=== PATIENT | female | born 1990 | race Caucasian/White ===

== ENCOUNTER 2022-08-31 12:34 | Emergency (ER) | payer MEDICARE, MEDICAID, SELFPAY ==
[2022-08-31] VITALS (21 sets, daily range): BP systolic 110–127; BP diastolic 62–91; PULSE 59–93; RESP 16; O2SAT 98–100; BMI 28.3
--- NOTE | 2022-08-31 15:37 | ED.GENADULT ---
HPI - General Adult General Time Seen by Provider: 15:38 Date Seen: 08/31/22 Chief complaint: Abdominal Pain Stated complaint: stomach pain Time Seen by Provider: 08/31/22 13:48 Source: patient and RN notes reviewed Mode of arrival: ambulatory Limitations: no limitations History of Present Illness HPI narrative: Patient is a 32-year-old female referred from urgent care with 4 day history of nausea vomiting and abdominal pain. She states about 11:00 p.m. Sunday night this started with abdominal pain and nausea vomiting. She has not been able to really eat anything as she has had ongoing abdominal pain and discomfort. She has not vomited in 2 days now. She has had normal bowel movements. No diarrhea. She is not had any fevers. She is not aware of any ill contacts or potentially food she ate. 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 She just can not remember. She was able to eat a small cup of macaroni and cheese yesterday. She has been taking fluids. She is on Depo-Provera and has not missed any doses. There are no urinary symptoms. She has not had any prior abdominal surgeries. No travel. Related Data Home Medications Medication Instructions Recorded Confirmed aripiprazole 5 mg tablet mg 08/31/22 bupropion HCl 150 mg 24 hr tablet, mg PO 08/31/22 extended release clonidine HCl 0.2 mg tablet mg 08/31/22 famotidine 20 mg tablet mg 08/31/22 fluoxetine 40 mg capsule mg 08/31/22 gabapentin 300 mg capsule mg 08/31/22 guanfacine 1 mg tablet,extended mg PO 08/31/22 release 24 hr lamotrigine 100 mg tablet mg 08/31/22 naproxen 500 mg tablet mg PRN 08/31/22 omeprazole 20 mg capsule,delayed mg 08/31/22 release propranolol 20 mg tablet mg 08/31/22 Previous Rx's Medication Instructions Recorded omeprazole 40 mg capsule,delayed 40 mg PO DAILY #14 caps 08/31/22 release ondansetron 4 mg disintegrating 4 mg PO Q6H PRN nausea and 08/31/22 tablet vomiting #20 tabs Allergies Allergy/AdvReac Type Severity Reaction Status Date / Time venom-wasp AdvReac Mild finger Verified 08/31/22 13:22 swelling Review of Systems Status of ROS: Reports: 10 or more systems reviewed and unremarkable except as noted in History and below PFSH PFS Social History Smoking Status: Current every day smoker Do you use any of these nicotine containing products: Vaping Products Second hand tobacco smoke exposure: No How often do you have a drink containing alcohol: 2-4 times a month AUDIT-C Alcohol total score: 2 Non-prescribed substance use: marijuana (any form) Exam Const: Vital Signs, click to edit/add: Vital Signs - 24 hr 08/31/22 13:15 08/31/22 15:23 08/31/22 15:22 Pulse Rate 69 Pulse Rate [Left P ulse Oximeter] 66 69 Respiratory Rate 16 16 Blood Pressure 127/62 Blood Pressure [Ri ght Upper Arm] 110/71 127/62 Pulse Oximetry 100 99 100 Oxygen Delivery Me thod Room Air Room Air 08/31/22 15:23 08/31/22 15:30 08/31/22 15:32 Pulse Rate 68 65 78 Pulse Rate [Left P ulse Oximeter] Respiratory Rate Blood Pressure 115/85 Blood Pressure [Ri ght Upper Arm] Pulse Oximetry 99 100 100 Oxygen Delivery Me thod 08/31/22 15:33 08/31/22 15:45 08/31/22 16:00 Pulse Rate 62 59 L 68 Pulse Rate [Left P ulse Oximeter] Respiratory Rate Blood Pressure Blood Pressure [Ri ght Upper Arm] Pulse Oximetry 100 100 100 Oxygen Delivery Me thod 08/31/22 16:02 08/31/22 16:15 08/31/22 16:30 Pulse Rate 67 67 Pulse Rate [Left P ulse Oximeter] Respiratory Rate Blood Pressure 114/91 H Blood Pressure [Ri ght Upper Arm] Pulse Oximetry 100 100 Oxygen Delivery Me thod Documenting provider has reviewed patient's vital signs: yes Common normals: no apparent distress, average body habitus, oriented x3, no limitations, healthy appearing, alert and well nourished General appearance: cooperative, comfortable, well kempt and well developed HENMT: Common normals: normocephalic, head/scalp atraumatic, hearing grossly normal bilaterally, external ears normal, external nose normal, nasal mucous membranes and turbinates normal, moist oral mucous membranes, oropharynx normal, dentition normal and gingiva normal Head and scalp: normocephalic and atraumatic Nose: external nose normal and nasal mucous membranes and turbinates normal External ear: external ears normal Eye: Common normals: PERRL, EOMs intact bilaterally, conjunctivae normal and no scleral icterus Conjunctiva: conjunctiva(e) normal Pupil: PERRL Neck & C-Spine: Common normals: full ROM, no lymphadenopathy, supple, no meningeal signs, no JVD and thyroid normal Thyroid: thyroid normal Resp: Common normals: normal respiratory effort, no retractions, no use of accessory muscles and clear to auscultation bilaterally Auscultation: clear to auscultation bilaterally Cardio: Common normals: no JVD, regular rate, regular rhythm, S1 normal heart sound, S2 normal heart sound, no gallops and no murmurs Rate: regular rate Rhythm: regular rhythm Heart sounds: S1 normal and S2 normal GI: Common normals: Normal to inspection, nondistended, normoactive bowel sounds present, soft to palpation, non-tender, no hepatosplenomegaly and no masses Palpation: soft and no hepatosplenomegaly Neuro: Common normals: oriented x3 Sensorium/orientation: alert Meningeal signs: no meningeal signs Psych: Appearance: well kempt Course Course Hospital Course: Patient looks clinically quite well. We will place an IV, treated with some IV Protonix, IV Zofran and a L of normal saline. We will get appropriate labs. I will initiate with imaging with a flat and upright. She does not have any abdominal tenderness. She has not vomited in a couple days now but is just having difficulty eating with increased pain. We will ensure that we do not need to do any advanced imaging today. This could be some post gastroenteritis gastritis, ileus. Doubtful that she has a small-bowel obstruction given her clinical exam on her abdomen. Will consider acute intra-abdominal pathology and guide further workup as indicated by a are pending labs and abdominal film. Reevaluation(s) Reevaluation #1: Reviewed patient's labs with her, did review her mildly elevated liver enzymes with ALT greater than AST. She used to drink heavily but has not drank in probably over a year. I do wonder if this is some viral induced bump in her liver enzymes. She is feeling better. IA do need her to follow up and have her liver enzymes rechecked or return if she is worsening in the interim. She does understand. Time: 18:05 Vital Signs Vital signs: Initial Vital Signs Temperature Source Temporal Artery Scan 08/31/22 13:15 Pulse Rate 66 08/31/22 13:15 Pulse Rhythm 08/31/22 13:15 Respiratory Rate 16 08/31/22 13:15 Blood Pressure 110/71 08/31/22 13:15 Blood Pressure Mean 84 08/31/22 13:15 Blood Pressure Position Sitting 08/31/22 13:15 Pulse Oximetry 100 08/31/22 13:15 Oxygen Delivery Method 08/31/22 13:15 Vital Signs Pulse Rate 66 08/31/22 13:15 Respiratory Rate 16 08/31/22 13:15 Blood Pressure 110/71 08/31/22 13:15 Pulse Oximetry 100 08/31/22 13:15 Oxygen Delivery Method 08/31/22 13:15 Pulse Rate 67 08/31/22 16:30 Respiratory Rate 16 08/31/22 15:23 Blood Pressure 114/91 H 08/31/22 16:02 Pulse Oximetry 100 08/31/22 16:30 Oxygen Delivery Method 08/31/22 15:23 Medical Decision Making Lab Data Lab results reviewed: Yes I reviewed the patient's lab results Labs: Lab Results 08/31/22 08/31/22 08/31/22 Range/Units 16:13 16:13 16:13 WBC 6.35 (4.50-11.00) K/uL RBC 4.91 (4.00-5.20) m/uL Hgb 12.3 (12.0-16.0) gm/dL Hct 38.5 (33.0-51.0) % MCV 78 L (80-100) fL MCH 25 L (26-34) pg MCHC 32 (32-36) gm/dL RDW Coeff of Oliverio 14.1 (11.5-15.5) % Plt Count 360 (140-440) K/uL Neut % (Auto) 47.8 (42.0-72.0) % Lymph % (Auto) 38.0 (20-44) % [place] % (Auto) 8.7 (0.0-11.0) % Eos % (Auto) 4.9 (0.0-7.0) % Baso % (Auto) 0.6 (0.0-3.0) % Neut # (Auto) 3.04 (1.7-7.0) K/uL Lymph # (Auto) 2.41 (0.90-2.90) K/uL [place] # (Auto) 0.60 (0.00-0.90) K/UL Eos # (Auto) 0.31 (0.00-0.50) K/uL Baso # (Auto) 0.04 (0.00-0.30) K/uL Abs Immat Gran (auto) 0.00 (0.00-0.30) K/uL Imm/Tot Granulo (auto) 0.0 % Sodium 141 (135-149) mmol/L Potassium 3.8 (3.6-5.1) mmol/L Chloride 105 (96-114) mmol/L Carbon Dioxide 25 (20-32) mmol/L BUN 8 (5-24) mg/dL Creatinine 0.6 (0.5-1.5) mg/dL Estimated Creat Clear 117.31 Estimated GFR 123 ml/min Glucose 87 (60-115) mg/dL Lactate 0.8 (0.5-1.9) mmol/L Calcium 9.6 (8.4-10.6) mg/dL Total Bilirubin 0.6 (0.1-1.5) mg/dL AST 51 H (12-35) U/L ALT 182 H (4-35) U/L Alkaline Phosphatase 116 (40-150) U/L C-Reactive Protein < 0.5 L (0.5-1.0) mg/dL Total Protein 8.0 (6.0-8.3) g/dL Albumin 4.8 (3.3-5.0) g/dL Lipase 39 (23-300) U/L SARS-CoV-2 (PCR) (Negative) Influenza Type A (PCR) (Negative) Influenza Type B (PCR) (Negative) 08/31/22 Range/Units 16:23 WBC (4.50-11.00) K/uL RBC (4.00-5.20) m/uL Hgb (12.0-16.0) gm/dL Hct (33.0-51.0) % MCV (80-100) fL MCH (26-34) pg MCHC (32-36) gm/dL RDW Coeff of Oliverio (11.5-15.5) % Plt Count (140-440) K/uL Neut % (Auto) (42.0-72.0) % Lymph % (Auto) (20-44) % [place] % (Auto) (0.0-11.0) % Eos % (Auto) (0.0-7.0) % Baso % (Auto) (0.0-3.0) % Neut # (Auto) (1.7-7.0) K/uL Lymph # (Auto) (0.90-2.90) K/uL [place] # (Auto) (0.00-0.90) K/UL Eos # (Auto) (0.00-0.50) K/uL Baso # (Auto) (0.00-0.30) K/uL Abs Immat Gran (auto) (0.00-0.30) K/uL Imm/Tot Granulo (auto) % Sodium (135-149) mmol/L Potassium (3.6-5.1) mmol/L Chloride (96-114) mmol/L Carbon Dioxide (20-32) mmol/L BUN (5-24) mg/dL Creatinine (0.5-1.5) mg/dL Estimated Creat Clear Estimated GFR ml/min Glucose (60-115) mg/dL Lactate (0.5-1.9) mmol/L Calcium (8.4-10.6) mg/dL Total Bilirubin (0.1-1.5) mg/dL AST (12-35) U/L ALT (4-35) U/L Alkaline Phosphatase (40-150) U/L C-Reactive Protein (0.5-1.0) mg/dL Total Protein (6.0-8.3) g/dL Albumin (3.3-5.0) g/dL Lipase (23-300) U/L SARS-CoV-2 (PCR) Negative SARS-CoV-2 (Negative) Influenza Type A (PCR) Negative PCR FLU A (Negative) Influenza Type B (PCR) Negative PCR FLU B (Negative) Imaging Data Abdominal x-ray: Attestation: I have reviewed the pertinent imaging results. My impression: No obstructive bowel pattern on my preliminary read. Radiologist's impression: Patient: GONZALO SHRESTHA Facility:[facility] Patient ID:?[id number] Site Patient ID:?[id number]. Site :?[id number] Study:?XRay Abdomen 2 VIEW-08/31/2022 4:12:48 PM Ordering Physician:Sreedhar Flaherty Final Report: Cap indication: n/v, pain Technique: Abdomen 3 view. Comparison: None. Findings: Bowel: Bowel pattern is normal. The amount of colonic stool is within normal limits. Other: No sign of free air. No suspicious calcifications. Osseous structures are unremarkable for age. Impression: Nonobstructed bowel-gas pattern. Unremarkable exam. Dictated by Alec Nielsen MD @ 08/31/2022 4:49:53 PM (Electronic Signature) Critical Care Time Critical Care Time Critical Care Time: No Discharge Plan Discharge Clinical Impression: Gastroenteritis, Elevated liver enzymes, Abdominal pain Condition: Stable Instructions: Gastroenteritis (ED), Abdominal Pain (ED) Additional Instructions: Can use Zofran as needed to help control nausea so that you can take in liquids. Would try to be on a clear liquid diet for the next 24 hours, if feeling okay then can try to advance diet as tolerated. Take daily omeprazole for the next 1-2 weeks until you are feeling better. Need to schedule a follow-up with your primary care provider in clinic and have your liver enzymes rechecked. Your AST and ALT, 2 liver enzymes, were very mildly elevated. It is possible that a viral cause of gastroenteritis could do this. It still is important to have these rechecked. If they remain elevated, would recommend further workup including potentially a liver ultrasound next. If you find over the weekend that you are having increasing abdominal pain, worsening nausea or vomiting, develops fever, have further concerns, return to the ER for further evaluation. Will place you on a proton pump inhibitor, omeprazole, to help heal up any potential gastritis of the stomach that may have occurred from a viral gastroenteritis. Activity Level: Activity as Tolerated Prescriptions: New omeprazole 40 mg capsule,delayed release(DR/EC) 40 mg PO DAILY Qty: 14 0RF ondansetron 4 mg tablet,disintegrating 4 mg PO Q6H PRN (Reason: nausea and vomiting) Qty: 20 0RF No Action fluoxetine 40 mg capsule clonidine HCl 0.2 mg tablet famotidine 20 mg tablet gabapentin 300 mg capsule lamotrigine 100 mg tablet naproxen 500 mg tablet PRN aripiprazole 5 mg tablet bupropion HCl 150 mg tablet extended release 24 hr PO guanfacine 1 mg tablet extended release 24 hr PO omeprazole 20 mg capsule,delayed release(DR/EC) propranolol 20 mg tablet Follow Up/Referrals: Provider,Not a Local [Primary Care Provider] - Stand Alone Forms: [facility] Info Instructions
--- NOTE | 2022-08-31 15:46 | CRLHL7_ITS ---
For Patients: As a result of the Century Cures Act, medical imaging exams and procedure reports are released immediately into your electronic medical record. You may view this report before your referring provider. If you have questions, please contact your health care provider. Cap indication: n/v, pain Technique: Abdomen 3 view. Comparison: None. Findings: Bowel: Bowel pattern is normal. The amount of colonic stool is within normal limits. Other: No sign of free air. No suspicious calcifications. Osseous structures are unremarkable for age. Impression: Nonobstructed bowel-gas pattern. Unremarkable exam. Dictated by Alec Nielsen MD @ 08/31/2022 4:49:53 PM (Electronically Signed)
[2022-08-31] MEDS: PANTOPRAZOLE SODIUM 40 MG INJ IVP (16:18)
[2022-08-31] MEDS: ONDANSETRON 2 MG/ML inj 4 MG IVP (16:18)
[2022-08-31] MEDS: 0.9 % SODIUM CHLORIDE 1000 ml 1,000 ML 500 ML IV (16:19)
[2022-08-31 16:28] LABS: Basophils Absolute Auto 0.04 K/uL (0.00-0.30); Basophils Percent Auto 0.6 % (0.0-3.0); Eosinophils Absolute Auto 0.31 K/uL (0.00-0.50); Eosinophils Percent Auto 4.9 % (0.0-7.0); Hematocrit 38.5 % (33.0-51.0); Hemoglobin* 12.3 gm/dL (12.0-16.0); Lymphocytes Absolute Auto 2.41 K/uL (0.90-2.90); Mean Corpuscular HGB Conc 32 gm/dL (32-36); Mean Corpuscular Hemoglobin 25 pg (26-34); Mean Corpuscular Volume 78 fL (80-100); Monocytes Percent Auto 8.7 % (0.0-11.0); Neutrophils Absolute Auto 3.04 K/uL (1.7-7.0); Neutrophils Percent Auto 47.8 % (42.0-72.0); Platelet Count* 360 K/uL (140-440); RDW Coefficient of Variation % 14.1 % (11.5-15.5); Red Blood Count 4.91 m/uL (4.00-5.20); White Blood Count* 6.35 K/uL (4.50-11.00)
[2022-08-31 16:29] LABS: Lactate* 0.8 mmol/L (0.5-1.9)
[2022-08-31 16:35] LABS: Slide Review Reflex No
[2022-08-31 16:48] LABS: Albumin* 4.8 g/dL (3.3-5.0); Chloride* 105 mmol/L (96-114)
[2022-08-31 16:49] LABS: Potassium* 3.8 mmol/L (3.6-5.1); Sodium* 141 mmol/L (135-149)
[2022-08-31 16:51] LABS: Creatinine* 0.6 mg/dL (0.5-1.5); Est. Creatinine Clearance* 117.31; Estimated Glomerular Filt Rate 123 ml/min
[2022-08-31 16:52] LABS: Alanine Aminotransferase* 182 U/L (4-35); Alkaline Phosphatase* 116 U/L (40-150); Aspartate Amino Transferase* 51 U/L (12-35); Bilirubin Total* 0.6 mg/dL (0.1-1.5); Blood Urea Nitrogen* 8 mg/dL (5-24); Calcium* 9.6 mg/dL (8.4-10.6); Carbon Dioxide* 25 mmol/L (20-32); Glucose* 87 mg/dL (60-115); Lipase* 39 U/L (23-300)
[2022-08-31 16:58] LABS: C Reactive Protein* < 0.5 mg/dL (0.5-1.0)
[2022-08-31 17:05] LABS: PCR FLU A Negative PCR FLU A (Negative); PCR FLU B Negative PCR FLU B (Negative); SARS PCR* Negative SARS-CoV-2 (Negative)
== END 2022-08-31 18:20 | disposition home or self-care (01) ==
PROVIDERS: Emergency Provider Family Medicine
DX: K52.9 Noninfective gastroenteritis and colitis, unspecified (principal); R94.5 Abnormal results of liver function studies
CPT/HCPCS: 36415; 74019; 80053; 83605; 83690; 85025; 86140; 87631; 96374; 96375; 99284; C9113; J2405; J7030

== ENCOUNTER 2022-10-03 22:06 | Emergency (ER) | payer MEDICARE, MEDICAID, SELFPAY | END 2022-10-03 23:46 | disposition left against medical advice (07) | LOC: ED 23:45 | DX: Z53.21 Procedure and treatment not carried out due to patient leaving prior to being seen by health care provider (principal) ==

== ENCOUNTER 2022-10-05 16:16 | Emergency (ER) | payer MEDICARE, MEDICAID, SELFPAY ==
[2022-10-05 16:39] VITALS: BP 111/80; PULSE 96; RESP 16; TEMP 36.4; O2SAT 98; BMI 25.6
--- NOTE | 2022-10-05 18:17 | ED.NAVMDI ---
HPI - Nausea/Vomiting/Diarrhea General Time Seen by Provider: 18:17 Date Seen: 10/05/22 Chief complaint: Nausea/Vomiting Stated complaint: Suspected elevated liver enzymes, nausea Time Seen by Provider: 10/05/22 18:17 Source: patient, RN notes reviewed and old records reviewed Mode of arrival: ambulatory Limitations: no limitations History of Present Illness HPI Narrative: Brooke is a very pleasant 32-year-old female with history of vomiting with elevated liver enzymes who comes to the emergency room with vomiting. She has her significant other note the inability to keep down food or even fluids including water for 3 days. She has continued to urinate. She has not had a sore throat or runny nose or a cough. She has not had a fever or any diarrhea with this. She was supposed to follow up for recheck of her liver enzymes after having similar symptoms in August. She was unable to do this she as she could not afford the gas money. She denies possibility of as she is currently on Depo. Associated nausea: Yes Related Data Home Medications Medication Instructions Recorded Confirmed aripiprazole 5 mg tablet 5 mg PO DAILY 08/31/22 10/05/22 bupropion HCl 150 mg 24 hr tablet, 150 mg PO DAILY 08/31/22 10/05/22 extended release clonidine HCl 0.2 mg tablet 0.2 mg PO PRN 08/31/22 famotidine 20 mg tablet 20 mg PO DAILY 08/31/22 10/05/22 fluoxetine 40 mg capsule 40 mg PO DAILY 08/31/22 10/05/22 gabapentin 300 mg capsule 300 mg PO Q12H 08/31/22 10/05/22 guanfacine 1 mg tablet,extended 1 mg PO PRN 08/31/22 release 24 hr lamotrigine 100 mg tablet 100 mg PO DAILY 08/31/22 10/05/22 naproxen 500 mg tablet mg PRN 08/31/22 omeprazole 20 mg capsule,delayed 20 mg PO DAILY 08/31/22 10/05/22 release propranolol 20 mg tablet mg 08/31/22 Previous Rx's Medication Instructions Recorded omeprazole 40 mg capsule,delayed 40 mg PO DAILY #14 caps 08/31/22 release ondansetron 4 mg disintegrating 4 mg PO Q6H PRN nausea and 08/31/22 tablet vomiting #20 tabs folic acid 400 mcg tablet 400 mcg PO DAILY #30 tabs 10/05/22 Allergies Allergy/AdvReac Type Severity Reaction Status Date / Time venom-wasp AdvReac Mild finger Verified 10/05/22 16:44 swelling Review of Systems Status of ROS: Reports: 10 or more systems reviewed and unremarkable except as noted in History and below Const: Denies: fever or chills Eyes: Denies: change in vision ENMT: Denies: throat pain, neck pain or difficulty swallowing Cardio: Denies: chest pain, swelling of feet/ankles, lightheadedness or shortness of breath with exertion Resp: Denies: shortness of breath, cough or wheezing GI: Reports: abdominal pain (There is an area on her lower abdomen that is tender only with coughing.), nausea and vomiting; Denies: diarrhea or difficulty swallowing : Denies: painful urination or urinary frequency Musculo: Denies: neck pain Neuro: Denies: headache, numbness in extremities or weakness in extremities Allergy/Immuno: Denies: wheezing PFSH PFSH Social History Smoking Status: Current every day smoker Do you use any of these nicotine containing products: Vaping Products Second hand tobacco smoke exposure: No How often do you have a drink containing alcohol: monthly or less How many standard drinks containing alcohol do you have on a typical day: 1 or 2 How often do you have six or more drinks on one occasion: Never AUDIT-C Alcohol total score: 1 Non-prescribed substance use: marijuana (any form) service: No Exam Narrative: Exam Narrative: Brooke is alert and oriented. She is nontoxic in appearance. She is in exam for in her significant other present very loving and supportive. Her eyes are clear and oral cavity does have moist mucous membranes. No erythema exudate in the posterior oropharynx. Neck is supple. Heart with regular rate and rhythm and lungs are clear. Abdomen is soft nontender. Patient does have an area near her belt buckle of that shows excoriated skin without evidence of infection this area is about the size of a elongated golf ball. No underlying tenderness. Moving all extremities. Const: Vital Signs, click to edit/add: Vital Signs - 24 hr 10/05/22 16:39 10/05/22 19:30 Temperature 97.6 F Pulse Rate [Right Pulse Oximeter] 96 92 Respiratory Rate 16 20 Blood Pressure [Ri ght Upper Arm] 111/80 116/74 Pulse Oximetry 98 100 Oxygen Delivery Me thod Room Air Room Air Documenting provider has reviewed patient's vital signs: yes Course Course Hospital Course: At this time patient has a history of elevated liver enzymes of unknown etiology. She uses a marijuana gummy occasionally but this is not on a daily basis and I do not think that this is cyclic vomiting syndrome. Her abdominal exam is very benign at this time. Would place an IV, repeat labs to include CBC, comprehensive panel, CRP and urinalysis. Zofran 4 mg IV and 1 L of normal saline will also be given. Reevaluation(s) Reevaluation #1: Patient is much improved after normal saline. Her labs are reassuring at this time and there is no evidence of elevated liver function test. I did add a urine hCG test and it was positive to the big surprise of Brooke in her partner. Vital Signs Vital signs: Initial Vital Signs Temperature 97.6 F 10/05/22 16:39 Temperature Source Temporal Artery Scan 10/05/22 16:39 Pulse Rate 96 10/05/22 16:39 Respiratory Rate 16 10/05/22 16:39 Blood Pressure 111/80 10/05/22 16:39 Blood Pressure Mean 90 10/05/22 16:39 Blood Pressure Position Sitting 10/05/22 16:39 Pulse Oximetry 98 10/05/22 16:39 Oxygen Delivery Method 10/05/22 16:39 Vital Signs Temperature 97.6 F 10/05/22 16:39 Pulse Rate 96 10/05/22 16:39 Respiratory Rate 16 10/05/22 16:39 Blood Pressure 111/80 10/05/22 16:39 Pulse Oximetry 98 10/05/22 16:39 Oxygen Delivery Method 10/05/22 16:39 Temperature 97.6 F 10/05/22 16:39 Pulse Rate 92 10/05/22 19:30 Respiratory Rate 20 10/05/22 19:30 Blood Pressure 116/74 10/05/22 19:30 Pulse Oximetry 100 10/05/22 19:30 Oxygen Delivery Method 10/05/22 19:30 MDM - Nausea/Vomiting/Diarrhea MDM Narrative Medical decision making narrative: 1. Vomiting-patient has had resolution of symptoms and is able to keep fluids down at this time. Normal saline 1 L and Zofran 4 mg IV given. Will give Brooke Zofran ODT through our [employer] meds machine to be used at home as needed. Push fluids as much as possible. 2. -I think that the vomiting most likely stems from her . There is no evidence of an hCG done in August. Brooke had told me that it is not possible she is because she was on Depo shots. However upon further discussion she notes that she is supposed to do it every 3 months and she is likely overdue. She cannot tell me when she last had her shot or when she had her last period. She does not have sore breasts at this time. She initially states ?my parents are going to kill me?. She states she is not sure if she is happy or unhappy. 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 Will also start her on high-dose folic acid as she is on lamotrigine. 400 mcg daily prescription sent to [facility]'s pharmacy. I was able to speak to RICHA Starr as patient is on multiple psychiatric medications. We were able to tell her that she may continue fluoxetine, omeprazole, Robitussin, Abilify, Belsomra, lamotrigine, clonidine. Patient was instructed to discontinue topiramate and sumatriptan although she states she has not taken that in quite some time. She should also abstain from naproxen and ibuprofen and may use Tylenol only for discomfort. She will need to follow up with her psychiatrist with the information that she is so that they may weigh in on her continuing medications. OBGYN did not feel that we should suddenly discontinue these medications after weighing risks and benefits. Patient is instructed to follow-up at our clinic to establish with OBYARELYN and obtain ultrasound for dates. 3. Disposition-patient is discharged home. Return as needed for worsening symptoms. Push fluids. Medical Records Attestation: I reviewed the patient's medical records. Lab Data Attestation: I reviewed the patient's lab results. Labs: Lab Results 10/05/22 10/05/22 10/05/22 Range/Units 18:26 18:42 18:42 WBC 8.27 (4.50-11.00) K/uL RBC 4.85 (4.00-5.20) m/uL Hgb 12.0 (12.0-16.0) gm/dL Hct 36.5 (33.0-51.0) % MCV 75 L (80-100) fL MCH 25 L (26-34) pg MCHC 33 (32-36) gm/dL RDW Coeff of Oliverio 15.3 (11.5-15.5) % Plt Count 387 (140-440) K/uL Neut % (Auto) 62.8 (42.0-72.0) % Lymph % (Auto) 26.2 (20-44) % [place] % (Auto) 9.1 (0.0-11.0) % Eos % (Auto) 1.5 (0.0-7.0) % Baso % (Auto) 0.4 (0.0-3.0) % Neut # (Auto) 5.20 (1.7-7.0) K/uL Lymph # (Auto) 2.17 (0.90-2.90) K/uL [place] # (Auto) 0.80 (0.00-0.90) K/UL Eos # (Auto) 0.12 (0.00-0.50) K/uL Baso # (Auto) 0.03 (0.00-0.30) K/uL Sodium 137 (135-149) mmol/L Potassium 3.6 (3.6-5.1) mmol/L Chloride 105 (96-114) mmol/L Carbon Dioxide 20 (20-32) mmol/L BUN 7 (5-24) mg/dL Creatinine 0.6 (0.5-1.5) mg/dL Estimated Creat Clear 117.31 Estimated GFR 123 ml/min Glucose 87 (60-115) mg/dL Calcium 9.5 (8.4-10.6) mg/dL Total Bilirubin 0.6 (0.1-1.5) mg/dL AST 21 (12-35) U/L ALT 20 (4-35) U/L Alkaline Phosphatase 97 (40-150) U/L C-Reactive Protein < 0.5 L (0.5-1.0) mg/dL Total Protein 8.2 (6.0-8.3) g/dL Albumin 4.8 (3.3-5.0) g/dL Urine Color Yellow (Yellow) Urine Appearance Clear (Clear) Urine pH 5.5 (5.0-8.5) Ur Specific [place] >= 1.030 (1.000-1.030) Urine Protein Trace A (Negative) Urine Glucose (UA) Negative (Negative) Urine Ketones 4+ A (Negative) Urine Blood Negative (Negative) Urine Nitrite Negative (Negative) Urine Bilirubin 1+ A (Negative) Urine Urobilinogen 0.2 (0.2-1.0) Ur Leukocyte Esterase Negative (Negative) Urine RBC 0-2 (0-2) Urine WBC 0-2 (0-5) Ur Squamous Epith Cells Moderate A (None-Few) Urine Bacteria Few A (None) Urine HCG, Qual POSITIVE H (Negative) Discharge Plan Discharge Clinical Impression: , Vomiting Patient Disposition: Home, Self-Care Condition: Improved Additional Instructions: Push fluids. Start vitamins. Zofran may be used sparingly as needed for nausea. Follow-up with our OBGYN clinic. Appointment can be made at [phone]. Of your medication from your physician, you would need to stop Topiramate also known as Topamax although you stated that you had not been taking that., sumatriptan although you stated that you are not taking this either. You would also need to not take naproxen headache medication known as Excedrin and ibuprofen. You may use Tylenol for pain. supplier quality engineering manager any vitamin at the store that you would like to start taking. If this makes you nauseated you may use Flintstones with iron. In addition we will start you on I high dose folate or folic acid supplement that I have sent to the pharmacy at [facility]. Return as needed. Prescriptions: New folic acid 400 mcg tablet 400 mcg PO DAILY Qty: 30 2RF No Action fluoxetine 40 mg capsule 40 mg PO DAILY clonidine HCl 0.2 mg tablet 0.2 mg PO PRN famotidine 20 mg tablet 20 mg PO DAILY gabapentin 300 mg capsule 300 mg PO Q12H lamotrigine 100 mg tablet 100 mg PO DAILY naproxen 500 mg tablet PRN aripiprazole 5 mg tablet 5 mg PO DAILY bupropion HCl 150 mg tablet extended release 24 hr 150 mg PO DAILY guanfacine 1 mg tablet extended release 24 hr 1 mg PO PRN omeprazole 20 mg capsule,delayed release(DR/EC) 20 mg PO DAILY propranolol 20 mg tablet omeprazole 40 mg capsule,delayed release(DR/EC) 40 mg PO DAILY Qty: 14 0RF ondansetron 4 mg tablet,disintegrating 4 mg PO Q6H PRN (Reason: nausea and vomiting) Qty: 20 0RF Follow Up/Referrals: Provider,Not a Local [Primary Care Provider] - Stand Alone Forms: [employer] Info Instructions
[2022-10-05] MEDS: 0.9 % SODIUM CHLORIDE 1000 ml 1,000 ML IV ×2 (18:44→19:40)
[2022-10-05] MEDS: ONDANSETRON 2 MG/ML inj 4 MG IVP (18:52)
[2022-10-05] MEDS: PANTOPRAZOLE SODIUM 40 MG INJ IVP (18:53)
[2022-10-05 18:58] LABS: Basophils Absolute Auto 0.03 K/uL (0.00-0.30); Basophils Percent Auto 0.4 % (0.0-3.0); Eosinophils Absolute Auto 0.12 K/uL (0.00-0.50); Eosinophils Percent Auto 1.5 % (0.0-7.0); Hematocrit 36.5 % (33.0-51.0); Lymphocytes Absolute Auto 2.17 K/uL (0.90-2.90); Lymphocytes Percent Auto 26.2 % (20-44); Mean Corpuscular HGB Conc 33 gm/dL (32-36); Mean Corpuscular Hemoglobin 25 pg (26-34); Mean Corpuscular Volume 75 fL (80-100); Monocytes Percent Auto 9.1 % (0.0-11.0); Neutrophils Percent Auto 62.8 % (42.0-72.0); Platelet Count* 387 K/uL (140-440); RDW Coefficient of Variation % 15.3 % (11.5-15.5); Red Blood Count 4.85 m/uL (4.00-5.20); White Blood Count* 8.27 K/uL (4.50-11.00)
[2022-10-05 19:02] LABS: Slide Review Reflex No
[2022-10-05 19:13] LABS: Albumin* 4.8 g/dL (3.3-5.0); Chloride* 105 mmol/L (96-114); Sodium* 137 mmol/L (135-149)
[2022-10-05 19:14] LABS: Potassium* 3.6 mmol/L (3.6-5.1)
[2022-10-05 19:16] LABS: Carbon Dioxide* 20 mmol/L (20-32); Creatinine* 0.6 mg/dL (0.5-1.5); Est. Creatinine Clearance* 117.31; Estimated Glomerular Filt Rate 123 ml/min
[2022-10-05 19:16] LABS: Appearance Urine Clear (Clear); Bilirubin Urine 1+ (Negative); Blood Urine Negative (Negative); Color Urine Yellow (Yellow); Glucose Urine Negative (Negative); Ketones Urine 4+ (Negative); Leukocyte Esterase Urine Negative (Negative); Nitrite Urine Negative (Negative); Protein Urine Trace (Negative); Specific Gravity Urine >= 1.030 (1.000-1.030); Urobilinogen Urine 0.2 (0.2-1.0); pH Urine 5.5 (5.0-8.5)
[2022-10-05 19:17] LABS: Alanine Aminotransferase* 20 U/L (4-35); Alkaline Phosphatase* 97 U/L (40-150); Aspartate Amino Transferase* 21 U/L (12-35); Bilirubin Total* 0.6 mg/dL (0.1-1.5); Blood Urea Nitrogen* 7 mg/dL (5-24); Calcium* 9.5 mg/dL (8.4-10.6); Glucose* 87 mg/dL (60-115); Total Protein* 8.2 g/dL (6.0-8.3)
[2022-10-05 19:22] LABS: C Reactive Protein* < 0.5 mg/dL (0.5-1.0)
[2022-10-05 19:26] LABS: Bacteria Urine Few; RBC Urine 0-2 (0-2); Squamous Epithelial Cell Urine Moderate (None-Few); WBC Urine 0-2 (0-5)
[2022-10-05 19:30] VITALS: BP 116/74; PULSE 92; RESP 20; O2SAT 100
[2022-10-05 20:20] LABS: Ur HCG Qualitative* POSITIVE (Negative)
== END 2022-10-05 21:33 | disposition home or self-care (01) ==
PROVIDERS: Emergency Provider Family Medicine
DX: R11.10 Vomiting, unspecified (principal); Z32.01 Encounter for pregnancy test, result positive
CPT/HCPCS: 36415; 80053; 81001; 81025; 85025; 86140; 87086; 96374; 96375; 99283; 99284; C9113; J2405; J7030

== ENCOUNTER 2022-10-13 08:40 | Outpatient (CLI) | payer MEDICARE, MEDICAID, SELFPAY | END 2022-10-13 08:41 | disposition home or self-care (01) | PROVIDERS: Visit Provider Advanced Practice Midwife | DX: Z34.90 Encounter for supervision of normal pregnancy, unspecified, unspecified trimester (principal) | CPT/HCPCS: 84702; 86900; 86901 ==

== ENCOUNTER 2022-10-26 10:56 | Outpatient (CLI) | payer MEDICARE, MEDICAID, SELFPAY ==
[2022-10-26 13:05] LABS: Amphetamine Screen Urine Negative (Negative); Barbiturate Screen Urine Negative (Negative); Benzodiazepines Screen Urine Negative (Negative); Cocaine Screen Urine Negative (Negative); Methadone Screen Urine Negative (Negative); Methamphetamines Screen Urine Negative (Negative); Opiate Screen Urine Negative (Negative); Oxycodone Screen Urine Negative (Negative); Phencyclidine Screen Urine Negative (Negative)
[2022-10-26 13:08] LABS: Cannabinoid Screen Urine POSITIVE (Negative); Tricyclic Antidepressant Urine POSITIVE (Negative)
[2022-10-26 13:42] LABS: HIV 1/2/P24 Combo Screen* Negative (Negative)
[2022-10-26 15:48] LABS: Iron* 35 ug/dL (37-170)
[2022-10-26 15:58] LABS: Percent Iron Saturation 9 % (20-50); Total Iron Binding Capacity 392 ug/dL (265-497)
[2022-10-26 16:22] LABS: Hepatitis B Surface Antigen* Negative (Negative)
[2022-10-26 16:26] LABS: Ferritin* 5.4 ng/mL (6.24-137.0)
[2022-10-26 16:39] LABS: Hepatitis C Virus Antibody* Negative (Negative)
[2022-10-26 20:56] LABS: Chlamydia DNA Amplified* NOT DETECTED (No Detected); GC DNA Amplified* NOT DETECTED (No Detected)
[2022-10-28 02:52] LABS: Rapid Plasma Reagin (RPR) Non Reactive (Non Reactive)
[2022-10-28 06:01] LABS: Varicella-Zoster Virus Ab, IgG 143.3 IV
[2022-10-28 06:02] LABS: Rubella Antibody IgG 21.5 IU/mL
== END 2022-10-26 10:57 | disposition home or self-care (01) ==
PROVIDERS: Visit Provider Physician Assistant
DX: Z34.91 Encounter for supervision of normal pregnancy, unspecified, first trimester; D64.9 Anemia, unspecified; F19.11 Other psychoactive substance abuse, in remission
CPT/HCPCS: 76801; 80306; 82728; 83540; 83550; 86592; 86703; 86762; 86787; 86803; 86850; 86900; 86901; 87086; 87340; 87491; 87591

== ENCOUNTER 2023-03-06 13:05 | Outpatient (CLI) | payer MEDICARE, MEDICAID, SELFPAY ==
--- NOTE | 2023-03-06 13:00 | CRLHL7_ITS ---
For Patients: As a result of the Century Cures Act, medical imaging exams and procedure reports are released immediately into your electronic medical record. You may view this report before your referring provider. If you have questions, please contact your health care provider. INDICATION: MEDICATION USE IN COMPARISON: 10/26/2022 TECHNIQUE: Real time santos scale imaging of the fetus was performed. FINDINGS: Sonographic imaging demonstrates a single living intrauterine gestation. Fetus demonstrates a regular cardiac rate of 150 beats per minute. Fetus has a vertex position. The placenta lies posteriorly. Amniotic fluid volume appears normal and there is a single deepest vertical pocket: 4.4 cm. The estimated weight is 1198gm which lies at the 53rd %. BPD 93rd percentile. HC 78th percentile. AC 57th percentile. FL 23rd percentile. The HC/AC ratio measures 1.13 range (0.99-1.21). IMPRESSION: Sonographic gestational age 28 weeks 6 days and sonographic due date 05/23/2023. Sonographic age is 1 week ahead of the clinical age. Estimated weight 53rd percentile. Abdominal circumference 57th percentile. Dictated by Sebastian Villeda MD @ 03/06/2023 2:41:21 PM (Electronically Signed)
== END 2023-03-06 13:06 | disposition home or self-care (01) ==
PROVIDERS: Visit Provider Physician Assistant
DX: Z34.93 Encounter for supervision of normal pregnancy, unspecified, third trimester (principal); Z3A.28 28 weeks gestation of pregnancy
CPT/HCPCS: 76816; 86592

== ENCOUNTER 2023-04-03 14:18 | Outpatient (CLI) | payer MEDICARE, MEDICAID, SELFPAY ==
[2023-04-03 18:36] LABS: Chlamydia DNA Amplified* NOT DETECTED (No Detected); GC DNA Amplified* NOT DETECTED (No Detected)
== END 2023-04-03 14:19 | disposition home or self-care (01) ==
LOC: NFLDREF 14:19
PROVIDERS: Visit Provider Registered Nurse
DX: N89.8 Other specified noninflammatory disorders of vagina (principal)
CPT/HCPCS: 76816; 87491; 87591

== ENCOUNTER 2023-04-19 09:22 | Outpatient (CLI) | payer MEDICARE, MEDICAID, SELFPAY | END 2023-04-19 09:23 | disposition home or self-care (01) | LOC: NFLDREF 04-20 19:14 | PROVIDERS: Visit Provider Obstetrics & Gynecology | DX: O99.019 Anemia complicating pregnancy, unspecified trimester (principal) | CPT/HCPCS: 82728 ==

== ENCOUNTER 2023-05-01 09:07 | Outpatient (CLI) | payer MEDICARE, MEDICAID, SELFPAY | END 2023-05-01 09:08 | disposition home or self-care (01) | PROVIDERS: Visit Provider Obstetrics & Gynecology | DX: Z34.93 Encounter for supervision of normal pregnancy, unspecified, third trimester (principal); Z3A.35 35 weeks gestation of pregnancy | CPT/HCPCS: 87081; 87653 ==

== ENCOUNTER 2023-05-08 13:00 | Outpatient (RCR) | payer MEDICARE, MEDICAID, SELFPAY ==
--- NOTE | 2023-04-20 12:13 | URNOTE ---
Per [facility] Prior auth List, Prior authorization is not required for Kailash ([id number])
[2023-04-24] MEDS: IRON SUCROSE COMPLEX 200 MG in 0.9 % SODIUM CHLORIDE 100 ml 440 MG IVPB (14:38)
[2023-04-24 15:02] VITALS: BP 96/59; PULSE 91; RESP 16; TEMP 36.7; O2SAT 98
[2023-04-24 15:30] VITALS: BP 97/60; PULSE 93; RESP 16; TEMP 36.5; O2SAT 97
[2023-04-24 16:15] VITALS: BP 94/62; PULSE 82; RESP 18; TEMP 36.1; O2SAT 97
[2023-04-26 13:09] VITALS: BP 133/66; PULSE 61; RESP 16; TEMP 36.2; O2SAT 99
[2023-04-26] MEDS: IRON SUCROSE COMPLEX 200 MG in 0.9 % SODIUM CHLORIDE 100 ml 460 MG IVPB (13:21)
[2023-04-26 14:31] VITALS: BP 134/62; PULSE 53; RESP 16; TEMP 36.6; O2SAT 100
[2023-05-01 11:23] VITALS: BP 109/74; PULSE 70; RESP 16; TEMP 36.3; O2SAT 100
[2023-05-01] MEDS: IRON SUCROSE COMPLEX 200 MG in 0.9 % SODIUM CHLORIDE 100 ml 440 MG IVPB (12:06)
[2023-05-01 12:57] VITALS: BP 113/75; PULSE 84; RESP 14; TEMP 36.9; O2SAT 98
[2023-05-03 12:54] VITALS: BP 104/74; PULSE 111; RESP 16; TEMP 36.2; O2SAT 100
[2023-05-03] MEDS: IRON SUCROSE COMPLEX 200 MG in 0.9 % SODIUM CHLORIDE 100 ml 440 MG IVPB (13:11)
[2023-05-03 13:31] VITALS: BP 99/63; PULSE 93; RESP 16; TEMP 36.2; O2SAT 98
[2023-05-03 14:01] VITALS: BP 99/63; PULSE 102; RESP 16; TEMP 36.4; O2SAT 99
[2023-05-08 13:02] VITALS: BP 110/74; PULSE 126; RESP 16; TEMP 36.1; O2SAT 97
[2023-05-08] MEDS: IRON SUCROSE COMPLEX 200 MG in 0.9 % SODIUM CHLORIDE 100 ml 440 MG IVPB (13:27)
== END 2023-10-21 23:59 | disposition home or self-care (01) ==
LOC: CCIC 13:00
PROVIDERS: Visit Provider Clinical Nurse Specialist
DX: D64.9 Anemia, unspecified (principal)
CPT/HCPCS: 76816; 96374; J1756

== ENCOUNTER 2023-05-12 12:00 | Inpatient (IN) | payer MEDICARE, MEDICAID, SELFPAY ==
[2023-05-12] VITALS (21 sets, daily range): BP systolic 111–159; BP diastolic 62–90; PULSE 50–95; RESP 16; TEMP 36.4–36.7; O2SAT 96–100; BMI 25.2
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
[2023-05-12 13:31] LABS: Basophils Absolute Auto 0.02 K/uL (0.00-0.30); Basophils Percent Auto 0.3 % (0.0-3.0); Eosinophils Absolute Auto 0.09 K/uL (0.00-0.50); Eosinophils Percent Auto 1.3 % (0.0-7.0); Hematocrit 32.2 % (33.0-51.0); Immature Granulocytes Abs Auto 0.02 K/uL (0.00-0.30); Immature Granulocytes Pct Auto 0.3 %; Lymphocytes Absolute Auto 1.37 K/uL (0.90-2.90); Mean Corpuscular HGB Conc 31 gm/dL (32-36); Mean Corpuscular Hemoglobin 24 pg (26-34); Mean Corpuscular Volume 78 fL (80-100); Monocytes Percent Auto 8.5 % (0.0-11.0); Neutrophils Absolute Auto 4.76 K/uL (1.7-7.0); Neutrophils Percent Auto 69.6 % (42.0-72.0); Platelet Count* 222 K/uL (140-440); RDW Coefficient of Variation % 25.2 % (11.5-15.5); Red Blood Count 4.14 m/uL (4.00-5.20); White Blood Count* 6.84 K/uL (4.50-11.00)
[2023-05-12 13:39] LABS: Amphetamine Screen Urine POSITIVE (Negative); Cannabinoid Screen Urine POSITIVE (Negative); Cocaine Screen Urine Negative (Negative); Methamphetamines Screen Urine POSITIVE (Negative); Opiate Screen Urine Negative (Negative); Phencyclidine Screen Urine Negative (Negative)
[2023-05-12 13:40] LABS: Barbiturate Screen Urine Negative (Negative); Benzodiazepines Screen Urine Negative (Negative); Methadone Screen Urine Negative (Negative); Oxycodone Screen Urine Negative (Negative)
[2023-05-12] MEDS: LACTATED RINGERS 1000 ML 1,000 ML 500 ML IV (13:50)
[2023-05-12 13:52] LABS: Albumin* 3.6 g/dL (3.3-5.0); Chloride* 106 mmol/L (96-114); Potassium* 3.4 mmol/L (3.6-5.1); Sodium* 135 mmol/L (135-149)
[2023-05-12 13:54] LABS: Creatinine* 0.6 mg/dL (0.5-1.5); Est. Creatinine Clearance* 116.24; Estimated Glomerular Filt Rate 122 ml/min
[2023-05-12 13:55] LABS: Alanine Aminotransferase* 16 U/L (4-35); Alkaline Phosphatase* 187 U/L (40-150); Aspartate Amino Transferase* 18 U/L (12-35); Bilirubin Total* 0.5 mg/dL (0.1-1.5); Blood Urea Nitrogen* 10 mg/dL (5-24); Calcium* 9.5 mg/dL (8.4-10.6); Carbon Dioxide* 23 mmol/L (20-32); Glucose* 89 mg/dL (60-115); Total Protein* 6.6 g/dL (6.0-8.3)
[2023-05-12 13:57] LABS: Slide Review Reflex Yes
[2023-05-12 13:58] LABS: Slide Review Acceptable Review (Acceptable)
--- NOTE | 2023-05-12 15:04 | P.OBPN_ITS ---
Subjective Time Seen by Provider: 02:30 Date Seen: 05/12/23 Narrative: Okay Objective Vital Signs: Last Vital Signs Pulse 70 05/12/23 12:38 Resp 16 05/12/23 08:24 BP 113/73 05/12/23 12:38 Pulse Ox 100 05/12/23 14:46 Pelvic Exam Dilation (cm): 5-6 Effacement (%): 80 Station: -1 Contractions Monitor mode: External Contraction pattern: Irregular Contraction intensity: Moderate Assessment Assessment: active labor and early labor Station: -1 Amniotic Membrane Status: AROM (Small amount of clear fluid) Status: Category ll Heart Rate Baseline: 130 Solvent Plant Treater Variability: Moderate (6-25) Monitor Accelerations: Present Monitor Decelerations: Variable Tracing Comments: One episode of a prolonged deceleration, down to 80s audible intermittently, position was changed, IVFs increased and internal heart rate monitor placed, baby recovered and is now to a normal baseline with moderate variability and accelerations. Labor Progress: Normal Plan Plan: In labor, patient was re checked as usual and cervix was found 5-6 cm, offered AROM and patient verbally agreed (she has needed AROM with her 2 previous pregnancies-as per patient). Continue current management. Patient would like to try a natural delivery w/o epidural at this time.
[2023-05-12] MEDS: LACTATED RINGERS 1000 ML 1,000 ML 125 ML IV (15:26)
[2023-05-12] MEDS: OMEPRAZOLE 20 MG CAPSULE DR PO (17:40)
[2023-05-12] MEDS: OXYTOCIN 30 unit/500 ML in NS 30 UNIT/500 ML BAG IVPB (18:00)
[2023-05-12] MEDS: ONDANSETRON 2 MG/ML inj 4 MG IV (18:04)
--- NOTE | 2023-05-12 19:46 | W.PM.OBVAGDE ---
OB Procedure Vag Delivery Mother Details Mother Details: The patient is a 33 year-old, 3, Para 3, admitted on 05/12/23 at 37 3/7 weeks gestation in labor for delivery. Patient admitted after cervical change and painful uterine contractions, difficult social situation and history of precipitous deliveries. Labor was augmented with AROM and IV Oxytocin was started after she was 8cm for more than 3 hours, although it was utilized for a very short amount of time, since patient started to experience very painful contractions and eventually requested ITN/epidural. Decision was made to discontinue oxytocin to help improve comfort until anesthesia arrived and patient sat down but started to feel extreme urge to push and was found complete and +2. : 3 Para: 3 Weeks Gestation: 37.3 Admission Date: 05/12/23 Additional Details Amniotic Membrane Status: AROM Amniotic Membrane Rupture Date: 05/12/23 Amniotic Membrane Rupture Time: 14:34 Amniotic Membrane Fluid Description: Clear Analgesia/Anesthesia Type: Nitrous Oxide Waterbirth: No Pitcoin: Yes Intrapartal Events: Labor Augmentation Delivery augmentation: rupture of membranes and pitocin Labor Onset: 14:30 Complete: 19:00 Pushin:00 Heart: heart tones during second stage were category 2. Delivery Details Delivery Date: 05/12/23 Delivery Time: 19:29 Route of delivery: Gender: Male Infant Viability: Alive; Heart Rate Present Position at Delivery: OA Delivery Details: Delivered over intact perineum via spontaneous vaginal delivery. was placed on maternal abdomen.? Cord was clamped and cut after a 30-60 second delay. Nose and mouth were bulb suctioned.? weight pending. 1 Minute Interval Total Score: 7 5 Minute Interval Total Score: 8 Additional Details Shoulder Dystocia: No Placenta Delivery Time: 19:38 Placental Delivery Description: Spontaneous Procedure Done: Global Blood Loss: 100 Laceration: Periurethral - 1st Degree (Not bleeding, not repaired) Blood Loss Measurement Type: QBL Bakri Used: No Sponge/Need Count Correct: Yes Cord Vessel Description: 3 Vessels, Nuchal Cord and Delivered through Event Summary Status: Mother and were stable after delivery. Disposition: floor
[2023-05-12] MEDS: LACTATED RINGERS 1000 ML 1,000 ML 123 ML IV (19:54)
[2023-05-12] MEDS: ACETAMINOPHEN 500 MG TABLET 1000 MG PO (20:42)
[2023-05-12] MEDS: QUETIAPINE 100 MG TABLET PO (21:46)
[2023-05-12] MEDS: ARIPiprazole 10 MG TABLET 5 MG PO (21:46)
[2023-05-12] MEDS: cloNIDine HCL 0.1 MG TABLET 0.2 MG PO (21:47)
[2023-05-13] VITALS (17 sets, daily range): BP systolic 97–147; BP diastolic 58–86; PULSE 50–82; RESP 12–16; TEMP 36.1–36.8; O2SAT 96–100
[2023-05-13] MEDS: 5 % DEXTROSE/0.45% SOD CHLOR 1,000 ML 125 ML IV (00:21)
[2023-05-13 05:49] LABS: Hematocrit 28.5 % (33.0-51.0); Mean Corpuscular HGB Conc 32 gm/dL (32-36); Mean Corpuscular Hemoglobin 25 pg (26-34); Mean Corpuscular Volume 78 fL (80-100); Platelet Count* 218 K/uL (140-440); Red Blood Count 3.65 m/uL (4.00-5.20); White Blood Count* 10.24 K/uL (4.50-11.00)
[2023-05-13 06:01] LABS: Slide Review Reflex No
[2023-05-13 06:04] LABS: Alanine Aminotransferase* 12 U/L (4-35); Aspartate Amino Transferase* 17 U/L (12-35); Blood Urea Nitrogen* 7 mg/dL (5-24); Creatinine* 0.5 mg/dL (0.5-1.5); Est. Creatinine Clearance* 139.49; Estimated Glomerular Filt Rate 128 ml/min
--- NOTE | 2023-05-13 06:42 | PC.CPCO ---
Verbal and written report made to [facility] online. Per Elizabeth Tenorio with [facility], verbal report no longer needed as online written report is all that is required. Rico Currie RNC.
[2023-05-13] MEDS: LACTATED RINGERS 1000 ML 1,000 ML 100 ML IV (08:50)
[2023-05-13] MEDS: BUPIVACAINE 0.5 % 10 ML VIAL INJECTION (09:33)
--- NOTE | 2023-05-13 09:56 | P.GYNPRC_ITS ---
Procedure Note Time Seen by Provider: 08:45 Date of procedure: 05/13/23 Pre-op diagnosis: Family planning Post-op diagnosis: same Procedure: bilateral salpingectomy Anesthesia: GETA Complications: None Surgeon: Hortencia Toro MD Estimated blood loss (mL): 5 Pathology: specimen obtained, sent to pathology Condition: stable Disposition: floor Findings: uterus at the level of the umbilicus, well contracted, grossly normal bilateral fallopian tubes and ovaries. Procedure Description: Informed consent obtained prior to surgery and discussed with patient the difference between partial vs complete salpingectomy. Patient had decided for bilateral salpingectomies and this was corroborated. Patient was taken to OR and GETA obtained without difficulties. Patient was placed in the supine position, cleansed and draped in the usual sterile manner. A time out protocol confirmed name of patient and procedure to be performed. The infraumbilical skin was grasped with two Allis clamps and a segment of about 3-4 cm was incised with blade, this was carried down sharply until the underlying fascia, this was identified and entered with Metzenbaum scissors and intraperitoneal entrance confirmed. Omentum identified to be intact. Small Xavi retractor was placed in the incision. This allowed excellent visualization. Trendelenburg position and a right airplane tilt obtained and the left fallopian tube was identified up to fimbria utilizing Sixto. The LigaSure device was utilized to clamp, coagulate and cut the mesosalpinx from the fimbrial end to cornual end. Hemostasis was secured. Afterwards a left airplane tilt was utilized to identify the right fallopian tube, this was easily identified up to fimbria utilizing Sixto. The LigaSure device was utilized to clamp, coagulate and cut the mesosalpinx from the fimbrial end to cornual end. Hemostasis was secured. Patient was flattened, fascia identified with Allis clamp and this was closed in a continuous fashion utilizing Vicryl 0. The subcutaneous tissue was also approximated with Vicryl 3- 0. The skin was approximated with Monocryl 4-0. Patient tolerated procedure well. She will return to her post room stable to continue cares.
--- NOTE | 2023-05-13 10:15 | W.ANESCHARGE ---
Anesthesia Charges Start Date/Time Anesthesia Start Date: 05/13/23 Anesthesia Start Time: 09:12 Stop Date/Time Anesthesia Stop Date: 05/13/23 Anesthesia Stop Time: 10:12
[2023-05-13] MEDS: KETOROLAC 30 MG/ML inj IVP (14:07)
[2023-05-13] MEDS: ACETAMINOPHEN 500 MG TABLET 1000 MG PO (18:48)
[2023-05-13] MEDS: DOCUSATE SODIUM 100 MG CAPSULE PO (18:49)
[2023-05-13] MEDS: ARIPiprazole 10 MG TABLET 5 MG PO (21:05)
[2023-05-13] MEDS: QUETIAPINE 100 MG TABLET PO (21:05)
[2023-05-13] MEDS: cloNIDine HCL 0.1 MG TABLET 0.2 MG PO (21:05)
[2023-05-13] MEDS: FAMOTIDINE 20 MG TABLET PO (21:05)
[2023-05-13] MEDS: SIMETHICONE 80 MG TAB.CHEW PO (22:33)
[2023-05-14] MEDS: FERROUS SULFATE 325 MG TABLET PO (07:43)
[2023-05-14] MEDS: IBUPROFEN 600 MG TABLET PO (07:43)
[2023-05-14 07:53] VITALS: BP 110/72; PULSE 70; RESP 16; TEMP 36.7; O2SAT 98
--- NOTE | 2023-05-14 07:55 | P.DS_ITS ---
DS: Providers Provider Time Seen by Provider: 07:56 Date Seen: 05/14/23 Date of admission: 05/12/23 12:00 Primary care physician: Not a Local Provider Admitting Clinician: Hortencia Toro MD Consults: 05/12/23 12:50 Consult to [employer] [CONS] Routine Comment: Reason for Consult:: Social Service Consult Attending Physician on discharge: Hortencia Toro MD Date of Discharge: 05/14/23 DS: Diagnosis Discharge Diagnosis (1) NVD (normal vaginal delivery): Status: Acute (2) First degree perineal laceration: Status: Acute (3) with adoption planned: Status: Acute Exam Narrative: Exam Narrative: VSS, afebrile GENERAL APPEARANCE: ?normal affect, alert, no distress MOOD: ?appropriate HEENT: normocephalic, neck supple, full ROM CHEST: ?Symmetrical chest wall movement. ?Normal respiratory effort. ?Clear to auscultation HEART: ?regular rate and rhythm ABDOMEN: ?soft, non-tender. Uterine fundus is firm, 2 below Umbilicus, Midline and is appropriate for the stage of recovery. ?Bowel sounds present. Small incision at umbilicus from tubal ligation. Well approximated, no signs of i nfection PERINEUM: ?mild edema of the perineum, there is a 1st degree laceration that is healing well. EXTREMITIES: ?normal and no edema Const: Vital Signs, click to edit/add: Vital Signs - 24 hr 05/13/23 08:30 05/13/23 10:10 05/13/23 10:15 Temperature 98.2 F 97 F L Pulse Rate 82 60 Pulse Rate [Pulse Oximeter] 65 Respiratory Rate 16 14 14 Blood Pressure 108/72 102/63 Blood Pressure [Le ft Arm] 130/86 Pulse Oximetry 99 100 100 Oxygen Delivery Me thod Room Air Room Air Room Air 05/13/23 10:20 05/13/23 10:25 05/13/23 10:30 Temperature Pulse Rate 62 60 53 L Pulse Rate [Pulse Oximeter] Respiratory Rate 14 14 14 Blood Pressure 110/67 107/67 108/71 Blood Pressure [Le ft Arm] Pulse Oximetry 100 100 100 Oxygen Delivery Me thod Room Air Room Air Room Air 05/13/23 10:35 05/13/23 10:40 05/13/23 10:55 Temperature 97 F L 97.5 F L Pulse Rate 53 L 55 L 50 L Pulse Rate [Pulse Oximeter] Respiratory Rate 14 14 14 Blood Pressure 112/72 124/82 116/75 Blood Pressure [Le ft Arm] Pulse Oximetry 100 100 96 Oxygen Delivery Me thod Room Air Room Air Room Air 05/13/23 11:10 05/13/23 11:25 05/13/23 11:40 Temperature Pulse Rate 56 L 53 L 52 L Pulse Rate [Pulse Oximeter] Respiratory Rate 14 14 14 Blood Pressure 130/71 147/86 H 132/82 Blood Pressure [Le ft Arm] Pulse Oximetry 96 96 96 Oxygen Delivery Me thod Room Air Room Air Room Air 05/13/23 12:48 05/13/23 17:00 05/13/23 23:55 Temperature 97.7 F 98.0 F 97.9 F Pulse Rate Pulse Rate [Pulse Oximeter] 65 54 L 53 L Respiratory Rate 14 14 14 Blood Pressure Blood Pressure [Le ft Arm] 132/71 105/80 111/73 Pulse Oximetry 96 98 98 Oxygen Delivery Me thod Room Air Documenting provider has reviewed patient's vital signs: yes OB - DS: Summary Hospital Course Hospital Course: Brooke is a 33 y.o. G 3 P 3 who was admitted to [facility] for labor. ?She had an uncomplicated NVD The patient feels well. ?The pain is somewhat controlled with current medications. ?She has no new complaints. The baby is currently with the adoptive parents.? the patient has done well.? Vitals have been s table.? She has remained afebrile.? Has a good appetite, is tolerating a general diet. ?She is voiding without difficulty.? She is passing gas and has not had a bowel movement.? She is ambulating and denies any dizziness.? Has Small amount of rubra lochia. She had a tubal ligation for prevention. Problems: Anemia plan: Discharge home today Follow up in 2 weeks and 6 weeks. Acute anemia, continue iron supplementation for 6 weeks Peripartum Data Infant delivery method: Vaginal Laceration description: Perineal - 1st Degree Procedures: Procedures Operation Date: 05/13/23 09:00 Actual Procedure Side Surgeon p Post Tubal Ligation Hortencia Toro MD Procedures: tubal ligation/salpingectomy complications: none Gender: Male Infant Discharge Plan: Adoption: With Contact Status at Discharge Functional status at discharge: independent ambulation Overall status at discharge: patient is progressing back to baseline Time Spent with Patient Time attestation: Total time spent providing and/or coordinating discharge services: Time spent: Less than 30 minutes Discharge Plan Discharge Disposition: Home, Self-Care Date of Admission: 05/12/23 12:00 Attending Provider on Discharge: Cynthia Childers Primary Care Provider: Provider,Not a Local Condition: Stable Anticipated Discharge Date/Time: 05/14/23 10:00 Discharge Medications: New docusate sodium 100 mg Capsule 100 mg PO BID PRNQty: 100 0RF Rx Instructions: Take 1 cap 1-2 times a day as needed for constipation ibuprofen 600 mg Tablet 600 mg PO Q6H PRNQty: 60 0RF oxycodone 5 mg tablet 5 mg PO Q4H PRN (Reason: pain) Qty: 7 0RF Continued quetiapine 100 mg tablet 100 mg PO QDAY polysaccharide iron complex [iFerex 150] 150 mg iron capsule 150 mg PO .COMPLEX Qty: 90 1RF Rx Instructions: 150 mg orally; Take 1 cap every other day. ferrous sulfate 325 mg (65 mg iron) tablet,delayed release (DR/EC) 325 mg PO QDAY Qty: 90 3RF clonidine HCl 0.2 mg tablet 0.2 mg PO DAILY PRN famotidine 20 mg tablet 20 mg PO DAILY aripiprazole 5 mg tablet 5 mg PO DAILY guanfacine 1 mg tablet extended release 24 hr 1 mg PO PRN omeprazole 20 mg capsule,delayed release(DR/EC) 20 mg PO DAILY Discharge Orders: Discharge Order (Routine); Ordered 05/14/23 Ordered By: Cynthia Childers Patient Education: OB Over the Counter Medication Information, OB Vaginal/Bottle Feeding Additional Instructions: Continue to take an iron supplement every other day for 6 weeks. May use tucks and dermaplast (non antiseptic) externally for pain/irritation from laceration. Activity Level: Activity as Tolerated Discharge Diet: Regular Follow Up Appointments: Provider,Not a Local [Primary Care Provider] - Forms: [facility] Info Instructions
[2023-05-14 08:38] VITALS: BP 110/72; PULSE 70; RESP 16; TEMP 36.7; O2SAT 99
--- NOTE | 2023-05-14 11:06 | PC.SOCIAL ---
Social work: Met with pt in room with present. Pt requested be present for social workers visit and was aware of what would be discussed. Pt and baby had positive urine tox screen results for Amphetamines, Meth and THC. Pt was already aware of these results. Informed pt of mandatory CPS report being made to the county. Pt explained that the positive tox screen was due to her using gummies to help with sleep and a few Adderall that were not prescribed being taken toward the end fo the . PT denied any other substance use. Verbal report made to Abdulkaidr at [facility] [phone] at 10:30am on 05/14/23. Written report secure emailed to [facility] [place].
== END 2023-05-14 12:00 | disposition home or self-care (01) | DRG 797 ==
LOC: OB OUT 12:20 → OB 12:20
PROVIDERS: Admitting Provider Obstetrics & Gynecology; Visit Provider Obstetrics & Gynecology
PROC: 0UT70ZZ Resection of Bilateral Fallopian Tubes, Open Approach (ICD-10-PCS; CPT 58605; principal; 2023-05-13 08:45)
DX: O99.344 Other mental disorders complicating childbirth (principal); O99.324 Drug use complicating childbirth; Z37.0 Single live birth; F15.90 Other stimulant use, unspecified, uncomplicated; F12.90 Cannabis use, unspecified, uncomplicated; F32.A Depression, unspecified; F41.9 Anxiety disorder, unspecified; F41.0 Panic disorder [episodic paroxysmal anxiety]; F90.9 Attention-deficit hyperactivity disorder, unspecified type; F43.10 Post-traumatic stress disorder, unspecified; F63.81 Intermittent explosive disorder; Z91.51 Personal history of suicidal behavior; Z91.52 Personal history of nonsuicidal self-harm; O70.0 First degree perineal laceration during delivery; O99.334 Smoking (tobacco) complicating childbirth; F17.211 Nicotine dependence, cigarettes, in remission; O99.02 Anemia complicating childbirth; D64.9 Anemia, unspecified; Z59.02 Unsheltered homelessness; Z30.2 Encounter for sterilization; Z3A.37 37 weeks gestation of pregnancy
CPT/HCPCS: 00851; 36415; 80053; 80306; 82565; 84450; 84460; 84520; 85025; 85027; 86850; 86900; 86901; 88302; 88304; 88307; A9270; J0330; J1100; J1885; J2250; J2371; J2405; J2704; J2710; J3010; J7120; S0020; S5010

== ENCOUNTER 2023-10-09 04:00 | Outpatient (CLI) | payer MEDICARE, MEDICAID, SELFPAY | END 2023-10-09 04:01 | disposition home or self-care (01) | LOC: AMB 10-10 10:42 | PROVIDERS: Visit Provider Family Medicine | DX: R45.851 Suicidal ideations (principal) | CPT/HCPCS: A0425; A0429 ==

== ENCOUNTER 2023-10-09 05:38 | Emergency (ER) | payer MEDICARE, MEDICAID, SELFPAY ==
[2023-10-09 05:51] VITALS: BP 139/103; PULSE 104; RESP 18; TEMP 36.8; O2SAT 97
[2023-10-09 06:22] LABS: Ur HCG Qualitative* Negative (Negative)
[2023-10-09 06:29] LABS: Cannabinoid Screen Urine POSITIVE (Negative)
[2023-10-09 06:30] LABS: Amphetamine Screen Urine POSITIVE (Negative); Barbiturate Screen Urine Negative (Negative); Benzodiazepines Screen Urine Negative (Negative); Cocaine Screen Urine Negative (Negative); Methadone Screen Urine Negative (Negative); Methamphetamines Screen Urine POSITIVE (Negative); Opiate Screen Urine POSITIVE (Negative); Oxycodone Screen Urine Negative (Negative); Phencyclidine Screen Urine Negative (Negative); Tricyclic Antidepressant Urine Negative (Negative)
--- NOTE | 2023-10-09 06:47 | ED_ITS ---
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 at this time. The patient does have a 72 hour hold that is signed but not dated. <Lester Couch MD - Last Filed: 10/09/23 16:05> Patient signed to the start of shift. She was medicated to help her sleep . She had no requests throughout my shift. Josue Duffy ([facility] accepted) [phone]. Transport arranged for 0700 tomorrow (10/10) due to weather and availability. <Capo Reyes DO - Last Filed: 10/10/23 02:03> Lab Data Labs: Lab Results 10/09/23 10/09/23 10/09/23 Range/Units 05:45 06:47 12:33 WBC 9.89 (4.50-11.00) K/uL RBC 4.03 (4.00-5.20) m/uL Hgb 11.6 L (12.0-16.0) gm/dL Hct 34.1 (33.0-51.0) % MCV 85 (80-100) fL MCH 29 (26-34) pg MCHC 34 (32-36) gm/dL RDW Coeff of Oliverio 13.8 (11.5-15.5) % Plt Count 275 (140-440) K/uL Neut % (Auto) 79.4 H (42.0-72.0) % Lymph % (Auto) 11.8 L (20-44) % [place]kins % (Auto) 7.6 (0.0-11.0) % Eos % (Auto) 1.0 (0.0-7.0) % Baso % (Auto) 0.1 (0.0-3.0) % Neut # (Auto) 7.90 H (1.7-7.0) K/uL Lymph # (Auto) 1.20 (0.90-2.90) K/uL Tompkins # (Auto) 0.80 (0.00-0.90) K/UL Eos # (Auto) 0.10 (0.00-0.50) K/uL Baso # (Auto) 0.01 (0.00-0.30) K/uL Abs Immat Gran (auto) 0.01 (0.00-0.30) K/uL Imm/Tot Granulo (auto) 0.1 % Sodium 138 (135-149) mmol/L Potassium 2.7 L* 3.2 L (3.6-5.1) mmol/L Chloride 105 (96-114) mmol/L Carbon Dioxide 23 (20-32) mmol/L Anion Gap 10 (7-15) mEq/L BUN 10 (5-24) mg/dL Creatinine 0.6 (0.5-1.5) mg/dL Estimated GFR 122 ml/min Glucose 99 (60-115) mg/dL Calcium 8.6 (8.4-10.6) mg/dL Total Bilirubin 0.2 (0.1-1.5) mg/dL Direct Bilirubin 0.0 (0.0-0.5) mg/dL AST 30 (12-35) U/L ALT 36 H (4-35) U/L Alkaline Phosphatase 82 (40-150) U/L Total Protein 6.6 (6.0-8.3) g/dL Albumin 3.6 (3.3-5.0) g/dL Urine HCG, Qual Negative (Negative) Salicylates < 1.0 L (1.0-10) mg/dL Urine Opiates Screen POSITIVE A (Negative) Ur Oxycodone Screen Negative (Negative) Urine Methadone Screen Negative (Negative) Ur Propoxyphene Screen Negative (Negative) Acetaminophen < 10.0 L (10.0-30.0) ug/mL Ur Barbiturates Screen Negative (Negative) U Tricyclic Antidepress Negative (Negative) Ur Phencyclidine Scrn Negative (Negative) Ur Amphetamines Screen POSITIVE A (Negative) U Methamphetamines Scrn POSITIVE A (Negative) U Benzodiazepines Scrn Negative (Negative) Urine Cocaine Screen Negative (Negative) U Marijuana (THC) Screen POSITIVE A (Negative) Ur Drug Screen Comment See Note Ethyl Alcohol < 0.01 L (0.01-0.03) % SARS-CoV-2 (PCR) (Negative) 10/09/23 Range/Units 13:30 WBC (4.50-11.00) K/uL RBC (4.00-5.20) m/uL Hgb (12.0-16.0) gm/dL Hct (33.0-51.0) % MCV (80-100) fL MCH (26-34) pg MCHC (32-36) gm/dL RDW Coeff of Oliverio (11.5-15.5) % Plt Count (140-440) K/uL Neut % (Auto) (42.0-72.0) % Lymph % (Auto) (20-44) % Tompkins % (Auto) (0.0-11.0) % Eos % (Auto) (0.0-7.0) % Baso % (Auto) (0.0-3.0) % Neut # (Auto) (1.7-7.0) K/uL Lymph # (Auto) (0.90-2.90) K/uL Tompkins # (Auto) (0.00-0.90) K/UL Eos # (Auto) (0.00-0.50) K/uL Baso # (Auto) (0.00-0.30) K/uL Abs Immat Gran (auto) (0.00-0.30) K/uL Imm/Tot Granulo (auto) % Sodium (135-149) mmol/L Potassium (3.6-5.1) mmol/L Chloride (96-114) mmol/L Carbon Dioxide (20-32) mmol/L Anion Gap (7-15) mEq/L BUN (5-24) mg/dL Creatinine (0.5-1.5) mg/dL Estimated GFR ml/min Glucose (60-115) mg/dL Calcium (8.4-10.6) mg/dL Total Bilirubin (0.1-1.5) mg/dL Direct Bilirubin (0.0-0.5) mg/dL AST (12-35) U/L ALT (4-35) U/L Alkaline Phosphatase (40-150) U/L Total Protein (6.0-8.3) g/dL Albumin (3.3-5.0) g/dL Urine HCG, Qual (Negative) Salicylates (1.0-10) mg/dL Urine Opiates Screen (Negative) Ur Oxycodone Screen (Negative) Urine Methadone Screen (Negative) Ur Propoxyphene Screen (Negative) Acetaminophen (10.0-30.0) ug/mL Ur Barbiturates Screen (Negative) U Tricyclic Antidepress (Negative) Ur Phencyclidine Scrn (Negative) Ur Amphetamines Screen (Negative) U Methamphetamines Scrn (Negative) U Benzodiazepines Scrn (Negative) Urine Cocaine Screen (Negative) U Marijuana (THC) Screen (Negative) Ur Drug Screen Comment Ethyl Alcohol (0.01-0.03) % SARS-CoV-2 (PCR) Negative SARS-CoV-2 (Negative) <Cynthia Barth MD - Last Filed: 10/10/23 08:08> Lab Results 10/09/23 10/09/23 10/09/23 Range/Units 05:45 06:47 12:33 WBC 9.89 (4.50-11.00) K/uL RBC 4.03 (4.00-5.20) m/uL Hgb 11.6 L (12.0-16.0) gm/dL Hct 34.1 (33.0-51.0) % MCV 85 (80-100) fL MCH 29 (26-34) pg MCHC 34 (32-36) gm/dL RDW Coeff of Oliverio 13.8 (11.5-15.5) % Plt Count 275 (140-440) K/uL Neut % (Auto) 79.4 H (42.0-72.0) % Lymph % (Auto) 11.8 L (20-44) % Tompkins % (Auto) 7.6 (0.0-11.0) % Eos % (Auto) 1.0 (0.0-7.0) % Baso % (Auto) 0.1 (0.0-3.0) % Neut # (Auto) 7.90 H (1.7-7.0) K/uL Lymph # (Auto) 1.20 (0.90-2.90) K/uL [place] # (Auto) 0.80 (0.00-0.90) K/UL Eos # (Auto) 0.10 (0.00-0.50) K/uL Baso # (Auto) 0.01 (0.00-0.30) K/uL Abs Immat Gran (auto) 0.01 (0.00-0.30) K/uL Imm/Tot Granulo (auto) 0.1 % Sodium 138 (135-149) mmol/L Potassium 2.7 L* 3.2 L (3.6-5.1) mmol/L Chloride 105 (96-114) mmol/L Carbon Dioxide 23 (20-32) mmol/L Anion Gap 10 (7-15) mEq/L BUN 10 (5-24) mg/dL Creatinine 0.6 (0.5-1.5) mg/dL Estimated GFR 122 ml/min Glucose 99 (60-115) mg/dL Calcium 8.6 (8.4-10.6) mg/dL Total Bilirubin 0.2 (0.1-1.5) mg/dL Direct Bilirubin 0.0 (0.0-0.5) mg/dL AST 30 (12-35) U/L ALT 36 H (4-35) U/L Alkaline Phosphatase 82 (40-150) U/L Total Protein 6.6 (6.0-8.3) g/dL Albumin 3.6 (3.3-5.0) g/dL Urine HCG, Qual Negative (Negative) Salicylates < 1.0 L (1.0-10) mg/dL Urine Opiates Screen POSITIVE A (Negative) Ur Oxycodone Screen Negative (Negative) Urine Methadone Screen Negative (Negative) Ur Propoxyphene Screen Negative (Negative) Acetaminophen < 10.0 L (10.0-30.0) ug/mL Ur Barbiturates Screen Negative (Negative) U Tricyclic Antidepress Negative (Negative) Ur Phencyclidine Scrn Negative (Negative) Ur Amphetamines Screen POSITIVE A (Negative) U Methamphetamines Scrn POSITIVE A (Negative) U Benzodiazepines Scrn Negative (Negative) Urine Cocaine Screen Negative (Negative) U Marijuana (THC) Screen POSITIVE A (Negative) Ur Drug Screen Comment See Note Ethyl Alcohol < 0.01 L (0.01-0.03) % SARS-CoV-2 (PCR) (Negative) 10/09/23 Range/Units 13:30 WBC (4.50-11.00) K/uL RBC (4.00-5.20) m/uL Hgb (12.0-16.0) gm/dL Hct (33.0-51.0) % MCV (80-100) fL MCH (26-34) pg MCHC (32-36) gm/dL RDW Coeff of Oliverio (11.5-15.5) % Plt Count (140-440) K/uL Neut % (Auto) (42.0-72.0) % Lymph % (Auto) (20-44) % Tompkins % (Auto) (0.0-11.0) % Eos % (Auto) (0.0-7.0) % Baso % (Auto) (0.0-3.0) % Neut # (Auto) (1.7-7.0) K/uL Lymph # (Auto) (0.90-2.90) K/uL Tompkins # (Auto) (0.00-0.90) K/UL Eos # (Auto) (0.00-0.50) K/uL Baso # (Auto) (0.00-0.30) K/uL Abs Immat Gran (auto) (0.00-0.30) K/uL Imm/Tot Granulo (auto) % Sodium (135-149) mmol/L Potassium (3.6-5.1) mmol/L Chloride (96-114) mmol/L Carbon Dioxide (20-32) mmol/L Anion Gap (7-15) mEq/L BUN (5-24) mg/dL Creatinine (0.5-1.5) mg/dL Estimated GFR ml/min Glucose (60-115) mg/dL Calcium (8.4-10.6) mg/dL Total Bilirubin (0.1-1.5) mg/dL Direct Bilirubin (0.0-0.5) mg/dL AST (12-35) U/L ALT (4-35) U/L Alkaline Phosphatase (40-150) U/L Total Protein (6.0-8.3) g/dL Albumin (3.3-5.0) g/dL Urine HCG, Qual (Negative) Salicylates (1.0-10) mg/dL Urine Opiates Screen (Negative) Ur Oxycodone Screen (Negative) Urine Methadone Screen (Negative) Ur Propoxyphene Screen (Negative) Acetaminophen (10.0-30.0) ug/mL Ur Barbiturates Screen (Negative) U Tricyclic Antidepress (Negative) Ur Phencyclidine Scrn (Negative) Ur Amphetamines Screen (Negative) U Methamphetamines Scrn (Negative) U Benzodiazepines Scrn (Negative) Urine Cocaine Screen (Negative) U Marijuana (THC) Screen (Negative) Ur Drug Screen Comment Ethyl Alcohol (0.01-0.03) % SARS-CoV-2 (PCR) Negative SARS-CoV-2 (Negative) <Lester Couch MD - Last Filed: 10/09/23 16:05> Lab Results 10/09/23 10/09/23 10/09/23 Range/Units 05:45 06:47 12:33 WBC 9.89 (4.50-11.00) K/uL RBC 4.03 (4.00-5.20) m/uL Hgb 11.6 L (12.0-16.0) gm/dL Hct 34.1 (33.0-51.0) % MCV 85 (80-100) fL MCH 29 (26-34) pg MCHC 34 (32-36) gm/dL RDW Coeff of Oliverio 13.8 (11.5-15.5) % Plt Count 275 (140-440) K/uL Neut % (Auto) 79.4 H (42.0-72.0) % Lymph % (Auto) 11.8 L (20-44) % Tompkins % (Auto) 7.6 (0.0-11.0) % Eos % (Auto) 1.0 (0.0-7.0) % Baso % (Auto) 0.1 (0.0-3.0) % Neut # (Auto) 7.90 H (1.7-7.0) K/uL Lymph # (Auto) 1.20 (0.90-2.90) K/uL Tompkins # (Auto) 0.80 (0.00-0.90) K/UL Eos # (Auto) 0.10 (0.00-0.50) K/uL Baso # (Auto) 0.01 (0.00-0.30) K/uL Abs Immat Gran (auto) 0.01 (0.00-0.30) K/uL Imm/Tot Granulo (auto) 0.1 % Sodium 138 (135-149) mmol/L Potassium 2.7 L* 3.2 L (3.6-5.1) mmol/L Chloride 105 (96-114) mmol/L Carbon Dioxide 23 (20-32) mmol/L Anion Gap 10 (7-15) mEq/L BUN 10 (5-24) mg/dL Creatinine 0.6 (0.5-1.5) mg/dL Estimated GFR 122 ml/min Glucose 99 (60-115) mg/dL Calcium 8.6 (8.4-10.6) mg/dL Total Bilirubin 0.2 (0.1-1.5) mg/dL Direct Bilirubin 0.0 (0.0-0.5) mg/dL AST 30 (12-35) U/L ALT 36 H (4-35) U/L Alkaline Phosphatase 82 (40-150) U/L Total Protein 6.6 (6.0-8.3) g/dL Albumin 3.6 (3.3-5.0) g/dL Urine HCG, Qual Negative (Negative) Salicylates < 1.0 L (1.0-10) mg/dL Urine Opiates Screen POSITIVE A (Negative) Ur Oxycodone Screen Negative (Negative) Urine Methadone Screen Negative (Negative) Ur Propoxyphene Screen Negative (Negative) Acetaminophen < 10.0 L (10.0-30.0) ug/mL Ur Barbiturates Screen Negative (Negative) U Tricyclic Antidepress Negative (Negative) Ur Phencyclidine Scrn Negative (Negative) Ur Amphetamines Screen POSITIVE A (Negative) U Methamphetamines Scrn POSITIVE A (Negative) U Benzodiazepines Scrn Negative (Negative) Urine Cocaine Screen Negative (Negative) U Marijuana (THC) Screen POSITIVE A (Negative) Ur Drug Screen Comment See Note Ethyl Alcohol < 0.01 L (0.01-0.03) % SARS-CoV-2 (PCR) (Negative) 10/09/23 Range/Units 13:30 WBC (4.50-11.00) K/uL RBC (4.00-5.20) m/uL Hgb (12.0-16.0) gm/dL Hct (33.0-51.0) % MCV (80-100) fL MCH (26-34) pg MCHC (32-36) gm/dL RDW Coeff of Oliverio (11.5-15.5) % Plt Count (140-440) K/uL Neut % (Auto) (42.0-72.0) % Lymph % (Auto) (20-44) % Tompkins % (Auto) (0.0-11.0) % Eos % (Auto) (0.0-7.0) % Baso % (Auto) (0.0-3.0) % Neut # (Auto) (1.7-7.0) K/uL Lymph # (Auto) (0.90-2.90) K/uL Tompkins # (Auto) (0.00-0.90) K/UL Eos # (Auto) (0.00-0.50) K/uL Baso # (Auto) (0.00-0.30) K/uL Abs Immat Gran (auto) (0.00-0.30) K/uL Imm/Tot Granulo (auto) % Sodium (135-149) mmol/L Potassium (3.6-5.1) mmol/L Chloride (96-114) mmol/L Carbon Dioxide (20-32) mmol/L Anion Gap (7-15) mEq/L BUN (5-24) mg/dL Creatinine (0.5-1.5) mg/dL Estimated GFR ml/min Glucose (60-115) mg/dL Calcium (8.4-10.6) mg/dL Total Bilirubin (0.1-1.5) mg/dL Direct Bilirubin (0.0-0.5) mg/dL AST (12-35) U/L ALT (4-35) U/L Alkaline Phosphatase (40-150) U/L Total Protein (6.0-8.3) g/dL Albumin (3.3-5.0) g/dL Urine HCG, Qual (Negative) Salicylates (1.0-10) mg/dL Urine Opiates Screen (Negative) Ur Oxycodone Screen (Negative) Urine Methadone Screen (Negative) Ur Propoxyphene Screen (Negative) Acetaminophen (10.0-30.0) ug/mL Ur Barbiturates Screen (Negative) U Tricyclic Antidepress (Negative) Ur Phencyclidine Scrn (Negative) Ur Amphetamines Screen (Negative) U Methamphetamines Scrn (Negative) U Benzodiazepines Scrn (Negative) Urine Cocaine Screen (Negative) U Marijuana (THC) Screen (Negative) Ur Drug Screen Comment Ethyl Alcohol (0.01-0.03) % SARS-CoV-2 (PCR) Negative SARS-CoV-2 (Negative) <Capo Reyes DO - Last Filed: 10/10/23 02:03> Discharge Plan Discharge Clinical Impression: Delusional disorder, Methamphetamine use <Cynthia Barth MD - Last Filed: 10/10/23 08:08> Patient Disposition: Xfer Other <Cynthia Barth MD - Last Filed: 10/10/23 08:08> Condition: Stable <Cynthia Barth MD - Last Filed: 10/10/23 08:08> Prescriptions: No Action quetiapine 100 mg tablet 100 mg PO QDAY polysaccharide iron complex [iFerex 150] 150 mg iron capsule 150 mg PO .COMPLEX Qty: 90 1RF Rx Instructions: 150 mg orally; Take 1 cap every other day. ferrous sulfate 325 mg (65 mg iron) tablet 325 mg PO Q OTHER DAY Qty: 90 0RF ferrous sulfate 325 mg (65 mg iron) tablet,delayed release (DR/EC) 325 mg PO QDAY Qty: 90 3RF clonidine HCl 0.2 mg tablet 0.2 mg PO DAILY PRN famotidine 20 mg tablet 20 mg PO DAILY aripiprazole 5 mg tablet 5 mg PO DAILY guanfacine 1 mg tablet extended release 24 hr 1 mg PO PRN omeprazole 20 mg capsule,delayed release(DR/EC) 20 mg PO DAILY docusate sodium 100 mg Capsule 100 mg PO BID PRNQty: 100 0RF Rx Instructions: Take 1 cap 1-2 times a day as needed for constipation ibuprofen 600 mg Tablet 600 mg PO Q6H PRNQty: 60 0RF oxycodone 5 mg tablet 5 mg PO Q4H PRN (Reason: pain) Qty: 7 0RF <Cynthia Barth MD - Last Filed: 10/10/23 08:08>
[2023-10-09] MEDS: OLANZapine 5 MG TAB.RAPDIS PO (07:05)
[2023-10-09 07:08] LABS: Basophils Absolute Auto 0.01 K/uL (0.00-0.30); Basophils Percent Auto 0.1 % (0.0-3.0); Hematocrit 34.1 % (33.0-51.0); Hemoglobin* 11.6 gm/dL (12.0-16.0); Immature Granulocytes Abs Auto 0.01 K/uL (0.00-0.30); Immature Granulocytes Pct Auto 0.1 %; Lymphocytes Percent Auto 11.8 % (20-44); Mean Corpuscular HGB Conc 34 gm/dL (32-36); Mean Corpuscular Hemoglobin 29 pg (26-34); Mean Corpuscular Volume 85 fL (80-100); Monocytes Percent Auto 7.6 % (0.0-11.0); Neutrophils Percent Auto 79.4 % (42.0-72.0); Platelet Count* 275 K/uL (140-440); RDW Coefficient of Variation % 13.8 % (11.5-15.5); Red Blood Count 4.03 m/uL (4.00-5.20); White Blood Count* 9.89 K/uL (4.50-11.00)
[2023-10-09 07:11] LABS: Slide Review Reflex No
[2023-10-09 07:12] LABS: Albumin* 3.6 g/dL (3.3-5.0)
[2023-10-09 07:13] LABS: Chloride* 105 mmol/L (96-114); Sodium* 138 mmol/L (135-149)
[2023-10-09 07:15] LABS: Alanine Aminotransferase* 36 U/L (4-35); Alkaline Phosphatase* 82 U/L (40-150); Anion Gap 10 mEq/L (7-15); Aspartate Amino Transferase* 30 U/L (12-35); Bilirubin Total* 0.2 mg/dL (0.1-1.5); Blood Urea Nitrogen* 10 mg/dL (5-24); Carbon Dioxide* 23 mmol/L (20-32); Creatinine* 0.6 mg/dL (0.5-1.5); Estimated Glomerular Filt Rate 122 ml/min; Glucose* 99 mg/dL (60-115); Total Protein* 6.6 g/dL (6.0-8.3)
[2023-10-09 07:16] LABS: Calcium* 8.6 mg/dL (8.4-10.6)
[2023-10-09 07:19] LABS: Acetaminophen* < 10.0 ug/mL (10.0-30.0); Potassium* 2.7 mmol/L (3.6-5.1); Salicylate* < 1.0 mg/dL (1.0-10)
[2023-10-09 07:35] LABS: Ethanol* < 0.01 % (0.01-0.03)
[2023-10-09] MEDS: POTASSIUM CHLORIDE 10 MEQ CAPSULE ER 40 MEQ PO (07:39)
[2023-10-09 10:08] VITALS: BP 121/92; PULSE 105; RESP 16; O2SAT 98
--- NOTE | 2023-10-09 10:09 | ED.NURSE ---
Pt completed DEC assessment. Pt has been writing in personal journal in her room. Pt cooperative with vital signs recheck, pt provided with menu to order a meal at this time.
--- NOTE | 2023-10-09 11:08 | ED.NURSE ---
Pt reporting some pain in her R hip/thigh area, rates pain 4/10. Pt requesting advil. notified, med ordered.
--- NOTE | 2023-10-09 11:10 | ED.NURSE ---
Pt provided with meal tray.
[2023-10-09] MEDS: POTASSIUM BICARB 25 MEQ EFFERVESCENT TAB PO (11:15)
[2023-10-09] MEDS: IBUPROFEN 200 MG TABLET 600 MG PO (11:15)
[2023-10-09 12:52] LABS: Potassium* 3.2 mmol/L (3.6-5.1)
--- NOTE | 2023-10-09 13:21 | ED.NURSE ---
Pt ambulatory to restroom independently. Once back in the room, pt asking mortgage loan underwriter where Elliott went. Pt states Elliott has been in the room with her throughout her stay. Pt has not had any visitors in the room during her stay. Pt has been seen on video monitoring several times during her stay talking out loud in the room to herself. notified.
[2023-10-09 13:26] VITALS: BP 144/94; PULSE 105; RESP 16; O2SAT 97
--- NOTE | 2023-10-09 13:35 | ED.NURSE ---
Pt's mother and father called requesting an update. Pt verbal okay'd providing update about condition and care to parents without any stipulations. Pt mother and father provided with update about pt's condition, plan for inpatient treatment.
--- NOTE | 2023-10-09 14:20 | ED.NURSE ---
MD in room and spoke with pt about need for pt inpatient treatment. Pt unhappy with this plan and argumentative with MD. MD exited the room. Pt was agreeable to change into paper scrubs at this time.
[2023-10-09 14:28] LABS: SARS PCR* Negative SARS-CoV-2 (Negative)
--- NOTE | 2023-10-09 14:45 | ED.NURSE ---
Production Inspector notified by security that pt became very agitated when asked to turn over metal necklaces she was wearing in addition to her other belongings per hospital mental health policy. Pt audibly yelling at security rover loud enough to be heard throughout ER.
--- NOTE | 2023-10-09 15:00 | ED.NURSE ---
Pt continued to become agitated in her room, yelling a conversation at someone in the room who is not physically present. Pt yelling loudly enought to be heard throughout the ER. notified, medication ordered due to pt agitation at this time. Card Room Manager offered pt PO med due to agitation, pt states Hell yeah I'm worked up!. Pt then refused to take any medications from information writer. Card Room Manager explained pt could take PO med at this time or staff would have to give her an IM injection to help her calm down. Pt states If you get anywhere close to touching me with a needle I will physically resist you. Card Room Manager exited the room, notified.
--- NOTE | 2023-10-09 15:15 | ED.NURSE ---
Form Builder Helper noted pt has a pen in the room that she has been writing in her journal with. Form Builder Helper asked pt to turn pen over due to her agitation and the danger of having a sharp object in the room. Pt refuses to turn pen over at this time. Form Builder Helper offered to provide pt with a marker instead to write with so that staff could remove the risk of having a sharp object in the room with the pt. Pt continues to refuse to turn over the pen at this time despite film writer expressing his concern about pt and staff safety due to the sharp object. notified, PD contacted for assistance at this time.
[2023-10-09] MEDS: OLANZapine 5 MG/ML inj 10 MG IM (15:45)
--- NOTE | 2023-10-09 15:50 | ED.NURSE ---
[place] Police Department Officers (PD) arrived in ER to assist staff with pt. PD spoke with pt and attempted to have pt turn over her sharp object (pen) that pt had in the room. Pt argumentative with PD and not willing to turn over pen unless she was given the paint markers in her bag. Staff offered alternative dry-erase markers to the pt, pt refused this. [place] markers assessed for safety, staff determined oil paint in the markers was not safe to give to the pt at this time. Pt informed of this and offered dry-erase marker again. Pt again refused to turn over pen. MD Couch updated, MD Couch entered room to speak with pt as well. Pt continued to refuse to turn over pen despite deescalation attempt by MD Couch. MD Couch then was able to quickly grab and secure the pen out of the pt's hand. The pen was removed from the room at this time. MD Couch then again offered to the pt to take PO meds rather than receive an IM injection. Pt refused to take PO med and again stated If you try to give me a shot I will physically resist you. MD Couch then directed staff and PD to physically secure patient so that an IM injection could be safely administered. Pt attempted to get up out of bed but was stopped by PD, security, MD Couch, and several nursing staff. Physical holds were applied briefly to pt and fiction and nonfiction writer prose administered IM injection to pt's left thigh. Pt yelled at staff and attempted to break free from holds during this time. Once IM med was administered and staff were able to exit the room safely, PD, security, and nursing staff all released physical holds on the pt and exited the room. The pt remained in bed after being released from physical holds. Pt was notified of being placed on a 72-hour hold and fiction and nonfiction writer prose read pt her 72-hour hold rights. Pt interrupted fiction and nonfiction writer prose several times as pt rights were read, stating, I dont' care, and I've been through this before, I know the drill. Copy of pt rights left in the room with the pt.
[2023-10-09 16:25] VITALS: BP 134/93; PULSE 77; RESP 16; O2SAT 97
--- NOTE | 2023-10-09 16:36 | ED.NURSE ---
Pt resting/sleeping at this time, rousable to voice. Pt cooperative with vitals recheck at this time. Pt permitted staff to remove her metal necklaces at this time as well. While pt's 2 necklaces were removed, one small triangle pendant fell off of one necklace into the sheets beneath the pt. Pt then turned over and covered herself with a blanket. Marshmallow Maker attempted to have pt turn back to one side in the bed to locate this pendant but pt did not respond to chart writer and went back to sleep. Plant Quality Manager placed the two necklaces that were removed in specimen cup and then these were placed with the pt's other belongings.
[2023-10-09 17:15] VITALS: BP 118/77; PULSE 93; RESP 20; O2SAT 96
--- NOTE | 2023-10-09 17:15 | ED.NURSE ---
Pt sleeping at this time. Vitals rechecked.
--- NOTE | 2023-10-09 20:18 | ED.NURSE ---
Patient accepted at [facility]. Dispatch contacted, they are working on finding transport and will call back with update.
--- NOTE | 2023-10-09 20:19 | ED.NURSE ---
Patients parents updated that patient has been accepted at [facility].
--- NOTE | 2023-10-09 22:56 | ED.NURSE ---
patients triangle pendant placed in cup with other necklaces in patients belongings.
--- NOTE | 2023-10-10 03:51 | ED.NURSE ---
patient up to the bathroom, she is steady on her feet.
--- NOTE | 2023-10-10 04:32 | ED.NURSE ---
patient updated on placement in [place] at [facility]. Pt also given coke and cereal per request.
[2023-10-10 07:47] VITALS: BP 105/74; PULSE 99; RESP 16; TEMP 37.2; O2SAT 99
--- NOTE | 2023-10-10 07:59 | ED.NURSE ---
pt transfered to [facility] via [facility] with belongings. report called. mother updated.
== END 2023-10-10 08:03 | disposition other institution (70) ==
PROVIDERS: Emergency Medicine Emergency Medical Services; Emergency Provider Family Medicine
DX: F22 Delusional disorders (principal); F15.20 Other stimulant dependence, uncomplicated
CPT/HCPCS: 36415; 80048; 80076; 80143; 80179; 80306; 81025; 82077; 84132; 85025; 87635; 96372; 99284; A9270; S0166

== ENCOUNTER 2023-10-10 07:30 | Outpatient (CLI) | payer MEDICARE, MEDICAID, SELFPAY | END 2023-10-10 07:31 | disposition home or self-care (01) | LOC: AMB 10-11 09:44 | PROVIDERS: Visit Provider Family Medicine | DX: R45.851 Suicidal ideations (principal) | CPT/HCPCS: A0425; A0428 ==